=== PATIENT | male | born 1965 | race Caucasian/White ===

== ENCOUNTER 2017-09-06 16:40 | Emergency (ER) | payer OTHER ==
[2017-09-06 17:30] VITALS: BP 136/88
== END 2017-09-06 17:30 | disposition home or self-care (01) ==
LOC: ED 16:40
DX: H11.32 Conjunctival hemorrhage, left eye (principal); E11.9 Type 2 diabetes mellitus without complications

== ENCOUNTER 2018-04-28 13:45 | Emergency (ER) | payer OTHER ==
[~2018-04-28] VITALS: Ht 162.6 cm; Wt 69.9 kg
[2018-04-28 14:00] VITALS: Ht 162.6 cm; Wt 69.9 kg
[2018-04-28 15:09] VITALS: BP 131/892
== END 2018-04-28 15:09 | disposition home or self-care (01) ==
LOC: ED 13:45
DX: S60.121A Contusion of right index finger with damage to nail, initial encounter (principal); L03.011 Cellulitis of right finger; E11.9 Type 2 diabetes mellitus without complications; X58.XXXA Exposure to other specified factors, initial encounter; Y93.89 Activity, other specified; Y92.89 Other specified places as the place of occurrence of the external cause; Y99.8 Other external cause status
CPT/HCPCS: Q0092

== ENCOUNTER 2018-06-21 20:14 | Emergency (ER) | payer OTHER ==
[~2018-06-21] VITALS: Ht 162.6 cm; Wt 66.7 kg
[2018-06-21 20:46] VITALS: Ht 162.6 cm; Wt 66.7 kg
[2018-06-21 21:32] VITALS: BP 139/98
== END 2018-06-21 22:07 | disposition home or self-care (01) ==
LOC: ED 20:14
DX: G47.00 Insomnia, unspecified (principal)
CPT/HCPCS: 82962